=== PATIENT | male | born 1965 | race Caucasian/White ===

== ENCOUNTER 2023-05-06 05:08 | Emergency (ER) | payer BC ==
[~2023-05-06] VITALS: Ht 180.3 cm; Wt 110.7 kg
[2023-05-06 05:53] LABS: BASO # 0.1 10^3/uL (0.0-0.2); BASO % 0.9 % (0.0-1.0); EOS # 0.1 10^3/uL (0.0-0.5); EOS % 1.1 % (0.0-3.0); HEMATOCRIT 45.3 % (42.0-52.0); HEMOGLOBIN 15.5 g/dl (13.5-17.5); LYMPH # 1.5 10^3/uL (1.5-5.0); LYMPH % 17.2 % (24.0-44.0); MEAN CORPUSCULAR HEMOGLOBIN 29.5 pg (27.0-33.0); MEAN CORPUSCULAR HGB CONC 34.2 g/dl (32.0-36.5); MEAN CORPUSCULAR VOLUME 86.3 fl (80.0-96.0); MONO # 0.4 10^3/uL (0.0-0.8); MONO % 4.8 % (2.0-8.0); NEUTROPHILS # 6.8 10^3/uL (1.5-8.5); NEUTROPHILS % 75.8 % (36.0-66.0); PLATELET COUNT, AUTOMATED 239 10^3/uL (150-450); RED BLOOD COUNT 5.25 10^6/uL (4.30-6.10)
[2023-05-06 06:25] LABS: LIPASE 40 U/L (12-53)
[2023-05-06 06:28] LABS: ALKALINE PHOSPHATASE 76 U/L (46-116); ALT/SGPT 16 U/L (7.0-40); AST/SGOT 9 U/L (<34); BILIRUBIN,DIRECT 0.2 MG/DL (<0.4); BILIRUBIN,TOTAL 0.7 MG/DL (0.3-1.2); BLOOD UREA NITROGEN 13 MG/DL (9-23); CALCIUM LEVEL 9.2 MG/DL (8.5-10.1); CARBON DIOXIDE LEVEL 24 MMOL/L (20-31); CHLORIDE LEVEL 110 MMOL/L (98-107); CREATININE FOR GFR 0.56 MG/DL (0.70-1.30); GLOMERULAR FILTRATION RATE > 60.0 (>56); GLUCOSE, FASTING 149 MG/DL (60-100); POTASSIUM SERUM 4.4 MMOL/L (3.5-5.1); SODIUM LEVEL 143 MMOL/L (136-145); TOTAL PROTEIN 6.8 G/DL (5.7-8.2)
[2023-05-06] MEDS ORDERED: KETOROLAC 30 MG/ML 1ML VIAL IM ONE (07:25)
[2023-05-06] MEDS ORDERED: FLOM0.4C39 PO (10:25)
[2023-05-06] MEDS ORDERED: PERCOCET 5MG/325MG TAB PO ONE (10:25)
[2023-05-06] MEDS ORDERED: ONDANSETRON 4MG ORAL DISINTEGRATING TAB PO ONE (10:25)
[2023-05-06] MEDS ORDERED: TAMSULOSIN 0.4 MG CAP PO ONE (10:25)
[2023-05-06] MEDS ORDERED: IBUP-1022 PO (10:25)
[2023-05-06] MEDS ORDERED: ONDA4TAB6 PO (10:26)
[2023-05-06] MEDS ORDERED: PERC5TAB12 PO (10:40)
[2023-05-06 11:04] VITALS: BP 124/70; TEMP 98; O2SAT 98
== END 2023-05-06 11:06 | disposition home or self-care (01) ==
LOC: EDBD 05:08 → M ED 05:08
DX: N23 Unspecified renal colic (principal); N20.0 Calculus of kidney
CPT/HCPCS: 74176; 80053; 81001; 82248; 83690; 85025; 96372; 99283; J1885